=== PATIENT | male | born 1990 | race Two or more races ===

== ENCOUNTER 2022-12-28 09:51 | Emergency (ER) | payer OTHER, SELFPAY ==
[2022-12-28 09:53] VITALS: BP 156/100; PULSE 74; RESP 14; TEMP 36.6; O2SAT 100; BMI 26.9
--- NOTE | 2022-12-28 11:50 | EX.ED.DYSGE1 ---
HPI History of Present Illness Chief Complaint: Allergic Reaction PFSH PFS Medical History no medical history Home Medications NK 12/28/22 [History Last Taken Unknown] Allergy/AdvReac Type Severity Reaction Status Date / Time No Known Allergies Allergy Verified 12/28/22 09:52 Social History Smoking Status: Never smoker EXAM Physical Exam Const Vital Signs: 12/28/22 09:53 Temperature 98 F Temperature Source Temporal Pulse Rate 74 Respiratory Rate 14 Blood Pressure 156/100 H Blood Pressure Mean 118 Pulse Ox 100 Oxygen Delivery Method Room Air MDM MDM MDM Narrative Medical decision making narrative: Patient was advised that this does not appear to be an anaphylactic reaction. He was advised it may be a hypersensitivity reaction to something. Patient was ordered Benadryl and prednisone. Patient declined these medications. Patient states he feels better and wants to go home. Patient was instructed to use Benadryl as needed for any itching and hives. Patient was instructed to follow-up with his primary care physician in 5 to 7 days. Patient was advised he may need allergy testing to determine the etiology of this reaction. Patient understands and is agreeable with the plan. All questions were answered. Discharge Plan Triage Chief Complaint: Allergic Reaction ED Provider: Ronaldo Win Dx/Rx/DC Orders Clinical Impression: Allergic reaction Instructions: ED General Allergic Reactions Prescriptions: No Action NK Primary Care Provider: Care Physician,No Primary Referrals: Sydnee Philippe DO [Med Staff - Correctional Officer Chief] - 5-7 Days Care Physician,No Primary [Primary Care Provider] - Disposition Disposition: Home, Self Care
== END 2022-12-28 11:59 | disposition home or self-care (01) ==
PROVIDERS: Emergency Provider Emergency Medicine; Visit Provider Emergency Medicine
DX: T78.40XA Allergy, unspecified, initial encounter (principal); X58.XXXA Exposure to other specified factors, initial encounter
CPT/HCPCS: 99282